=== PATIENT | male | born 1990 | race Caucasian/White ===

== ENCOUNTER 2020-06-28 01:22 | Emergency (ER) | payer BC ==
[~2020-06-28] VITALS: Ht 182.9 cm; Wt 90.7 kg
[2020-06-28] MEDS ORDERED: VISTARIL50 MG PO (04:34)
== END 2020-06-28 04:40 | disposition home or self-care (01) ==
LOC: ER 01:22
DX: F10.20 Alcohol dependence, uncomplicated (principal); Y90.9 Presence of alcohol in blood, level not specified